=== PATIENT | male | born 1950 | race Caucasian/White ===

== ENCOUNTER → 2019-05-12 | Outpatient (CLI) | payer MEDICARE, OTHER, SELFPAY ==
[2019-05-12 11:24] LABS: Anion Gap 4 (5-15); BUN 17 mg/dL (7-18); Calcium,Total 8.8 mg/dL (8.5-10.1); Chloride 110 mmol/L (98-107); Creatinine, Serum 1.06 mg/dL (0.70-1.30); EST Glomerular Filtration Rate 74 mL/min (>60); Est Glom Filt Rate - Afr Amer 89 mL/min (>60); Glucose 88 mg/dL (74-106); PSA,Total - Annual Screen 0.39 ng/mL (0.00-4.00); Potassium 4.3 mmol/L (3.5-5.1); Sodium Level 141 mmol/L (136-145)
== END | disposition home or self-care (01) ==
LOC: MFPLAB 09:00
PROVIDERS: Family Provider Family Medicine; PCP Family Medicine; Referring Provider Family Medicine; Visit Provider Family Medicine
DX: Z00.00 Encounter for general adult medical examination without abnormal findings (principal); Z12.5 Encounter for screening for malignant neoplasm of prostate
CPT/HCPCS: 36415; 80048; 84153; G0103

== ENCOUNTER → 2020-06-09 09:20 | Outpatient (CLI) | payer MEDICARE, OTHER, SELFPAY ==
[2020-06-09 10:59] LABS: Anion Gap 5 (5-15); BUN 14 mg/dL (7-18); BUN/Creat Ratio 13.9 RATIO (10-20); Calcium,Total 8.5 mg/dL (8.5-10.1); Chloride 107 mmol/L (98-107); Cholesterol 162 mg/dL (200); Creatinine, Serum 1.01 mg/dL (0.70-1.30); EST Glomerular Filtration Rate 77 mL/min (>60); Est Glom Filt Rate - Afr Amer 94 mL/min (>60); Glucose 93 mg/dL (74-106); High Density Lipoprotein 56 mg/dL; PSA,Total - Annual Screen 0.48 ng/mL (0.00-4.00); Sodium Level 140 mmol/L (136-145); Triglycerides 48 mg/dL; Very Low Density Lipoprotein 10 mg/dL (5-40)
== END ==
PROVIDERS: PCP Family Medicine; Referring Provider Family Medicine; Visit Provider Family Medicine
DX: N40.0 Benign prostatic hyperplasia without lower urinary tract symptoms (principal); Z13.1 Encounter for screening for diabetes mellitus; Z13.220 Encounter for screening for lipoid disorders
CPT/HCPCS: 36415; 80048; 80061; 84153; G0103

== ENCOUNTER → 2022-05-30 | Outpatient (CLI) | payer MEDICARE, SELFPAY ==
--- NOTE | 2022-05-30 13:55 | RAD_ITS ---
STUDY: X-RAY - RIGHT FOOT CLINICAL: Pain at the distal second and third metatarsals after injury 3 months ago. TECHNIQUE: 3 view(s) of the foot. COMPARISON: None. 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 Otherwise, unremarkable talus, calcaneus, and tarsal bones. Normal visualized subtalar, talonavicular, calcaneocuboid, tarsal and tarsometatarsal articulations. Normal metatarsi. Normal metatarsophalangeal joint of the great toe. Normal tibial and fibular sesamoid bones. Normal interphalangeal joint of the great toe. Normal phalanges of the great toe. Normal second through fifth metatarsophalangeal joints. Normal interphalangeal joints and phalanges of the lesser toes. The soft tissue structures are unremarkable. RAD/Foot min 3 Views IMPRESSION: Nonosseous calcaneonavicular coalition. Otherwise, unremarkable x-ray examination of the right foot. Electronically Signed: Jere Lu MD at 14:16 EDT ,
== END | disposition home or self-care (01) ==
LOC: MTRAD 13:53
PROVIDERS: PCP Family Medicine; Referring Provider Family Medicine; Visit Provider Family Medicine
DX: M79.671 Pain in right foot (principal)
CPT/HCPCS: 73630

== ENCOUNTER 2022-09-26 08:31 | Outpatient (CLI) | payer MEDICARE, SELFPAY ==
[2022-09-26 09:44] LABS: Hematocrit 43.5 % (40-54); Hemoglobin 15.1 g/dL (13.0-16.5); Mean Corp Hgb Conc 34.7 g/dL (32-36); Mean Corpuscular Hgb 33.4 pg (27.0-32.0); Mean Corpuscular Volume 96.2 fL (80-94); Mean Platelet Vol. 10.7 fl (6.2-12.0); Platelet Count 177 K/mm3 (150-450); RBC Distribution Width CV 13.2 % (11.6-14.6); RBC Distribution Width SD 46.7 fl (35.1-43.9); Red Blood Count 4.52 M/mm3 (4.6-6.2); White Blood Count 4.5 K/mm3 (4.4-11.0)
[2022-09-26 10:24] LABS: Vitamin B12 444 pg/mL (211-911); Vitamin D,25 Hydroxy 42.6 ng/mL
[2022-09-26 10:44] LABS: Anion Gap 7 (5-15); BUN 14 mg/dL (7-18); BUN/Creat Ratio 13.5 RATIO (10-20); Chloride 108 mmol/L (98-107); Cholesterol 184 mg/dL (200); Creatinine, Serum 1.04 mg/dL (0.70-1.30); EST Glomerular Filtration Rate 74 mL/min (>60); Est Glom Filt Rate - Afr Amer 90 mL/min (>60); Glucose 100 mg/dL (74-106); High Density Lipoprotein 53 mg/dL; Iron 109 ug/dL (65-175); PSA,Total - Annual Screen 0.47 ng/mL (0.00-4.00); Potassium 3.9 mmol/L (3.5-5.1); Sodium Level 142 mmol/L (136-145); Thyroid Stim Hormone (TSH) 3.07 uIU/mL (0.358-3.74); Triglycerides 103 mg/dL; Very Low Density Lipoprotein 21 mg/dL (5-40)
== END 2022-09-26 23:59 | disposition home or self-care (01) ==
LOC: MFPLAB 08:32
PROVIDERS: PCP Family Medicine; Referring Provider Family Medicine; Visit Provider Family Medicine
DX: Z13.220 Encounter for screening for lipoid disorders (principal); Z13.1 Encounter for screening for diabetes mellitus; Z12.5 Encounter for screening for malignant neoplasm of prostate; G62.9 Polyneuropathy, unspecified; H81.09 Meniere's disease, unspecified ear; F41.9 Anxiety disorder, unspecified; N40.0 Benign prostatic hyperplasia without lower urinary tract symptoms; G47.33 Obstructive sleep apnea (adult) (pediatric); G57.61 Lesion of plantar nerve, right lower limb; M17.0 Bilateral primary osteoarthritis of knee
CPT/HCPCS: 36415; 80048; 80061; 82306; 82607; 83540; 84153; 84443; 85027; G0103

== ENCOUNTER → 2024-01-21 | Outpatient (CLI) | payer MEDICARE, SELFPAY ==
--- NOTE | 2024-01-21 17:20 | RAD_ITS ---
INDICATION: pain EXAMINATION/TECHNIQUE: X-RAY - RIGHT XR Knee Complete 4 Views or More 4 VIEWS COMPARISON: None FINDINGS: SOFT TISSUES: No soft tissue swelling or gas. No radiopaque foreign body. BONES/JOINTS: No acute fracture. Small joint effusion.. Medial compartment joint space narrowing with mild tricompartment osteophyte formation. Preservation of the joint space.. No sclerotic or destructive changes observed. RAD/Knee 4 or More Views IMPRESSION: Mild tricompartmental osteoarthritis with small nonspecific joint effusion.. Electronically Signed: Ranjit Warren MD at 17:30 EDT ,
== END | disposition home or self-care (01) ==
LOC: MTRAD 17:18
PROVIDERS: PCP Family Medicine; Referring Provider Family Medicine; Visit Provider Family Medicine
DX: M25.561 Pain in right knee (principal)
CPT/HCPCS: 73564

== ENCOUNTER → 2024-05-13 | Outpatient (CLI) | payer MEDICARE, SELFPAY ==
[2024-05-13 17:31] LABS: Hematocrit 44.1 % (40-54); Hemoglobin 15.2 g/dL (13.0-16.5); Mean Corp Hgb Conc 34.5 g/dL (32-36); Mean Corpuscular Hgb 33.1 pg (27.0-32.0); Mean Corpuscular Volume 96.1 fL (80-94); Mean Platelet Vol. 10.6 fl (6.2-12.0); Platelet Count 196 K/mm3 (150-450); RBC Distribution Width CV 12.9 % (11.6-14.6); RBC Distribution Width SD 45.7 fl (35.1-43.9); Red Blood Count 4.59 M/mm3 (4.6-6.2)
[2024-05-13 18:25] LABS: Vitamin B12 701 pg/mL (211-911); Vitamin D,25 Hydroxy 50.2 ng/mL
== END | disposition home or self-care (01) ==
LOC: MFPLAB 16:53
PROVIDERS: PCP Family Medicine; Visit Provider Nurse Practitioner Family
DX: G31.84 Mild cognitive impairment of uncertain or unknown etiology (principal)
CPT/HCPCS: 36415; 82306; 82607; 84443; 85027

== ENCOUNTER 2024-05-27 07:30 | Outpatient (RCR) | payer MEDICARE, SELFPAY ==
--- NOTE | 2024-03-31 09:02 | HP.PTEVAL ---
Patient's Visit Information Visit Information Visit Information: CHRISTINA DON is a 73 year old M referred to Physical Therapy by Dr. Bassam Jean MD with a diagnosis of R knee pain/OA. Date of Evaluation: 03/31/24 Physical Therapist: CHENG Durbin Visit Plan Frequency: 2x /Week Duration: 2 Months Plan: Thinking biking to help with inflammation and to avoid terminal knee ext on leg ext machine. 2X/ week for 6-8 weeks for R knee AROM to improve extension ROM, R hip and knee strength, some core strength with HEP. Pt is a [employer] member and would also like a gym routine which we can incorporate into his strengthening HEP: bridges, supine QS, LAQ Subjective Subjective: Pt reports that in November he twisted his R knee. Has x-ray and pills and he wanted him to do PT. Both of his knees hurt once in awhile but on the R he can not twist it and he walks with a little limp. They did not do an MRI. His pain has been there for 4 months and it gotten a little better but not much. His R knee does not lock or catch. His R knee will swell a little bit. He has to do one step at a time on the stairs. He has night pain when he lays down at night and the pain will wake him up. He sleeps with his knees bent and then has a hard time straightening them out. He has no N&T. He did get a steroid injection in the knee and it did help but for only a week or so. He does wear a brace from time to time with activity and that seems to help. Pain R knee pain: Pain Intensity (Out of 10): 0 Objective Objective: Gait: Walks with decrease stance time on the R LE, wider POLLY LE MMT: R hip flex 13.6 and L hip flex12.3 R knee ext 25.9 and L 29.5 R knee flex 16.8 and L 16.2 Pt is able to SLR but has tightness in the hamstrings B Knee AROM: R knee AROM -10 to 125 L knee AROM -4 to 125 Heel and toe raises: Pt is able to heel and toe raise Sit to stand: able to get up without using his arms Palpation: tender along the posterior joint line medially Girth measurements: Tib tub R 35.1 snf L 35.7, Infrapatella R 38 and L 37.5, Suprapatella R 41 and L 40.1 Balance/Special Test Scores Lower Extremity Functional Score: 36 Goals Goal 1:: I HEP Goal Time Frame: 6-8 Weeks Goal 2:: Increase R knee AROM to improve overall extension AROM (at the time of the eval R knee was -10 degrees from full extension) Goal Time Frame: 6-8 Weeks Goal 3:: Be able to go up and down the stairs recip with 1 hand rail with ease and without pain Rehabilitation Potential Rehabilitation Potential: Good Anticipated Interventions Patient/Client Instruction: Educate patient on: Condition and Plan of Care For the Purpose of:: To decrease pain, To decrease swelling/inflammation, To increase ROM, To improve nutrient delivery to tissue, To improve muscle performance and motor function, To improve ability to perform ADL's, To increase tolerance to activity/condition/position, To improve performance and independence with ADL's, To improve ability of physical actions for home/community/work/leisure, To improve gait and locomotor functions, To improve health of tissue, To decrease soft tissue restriction and To increase flexibility/ROM Therapeutic Exercise to Include: Strength training, Endurance training, Balance training, Postural training, Gait and locomotor training, Neuromotor development, Passive ROM and Active ROM For the Purpose of:: To decrease pain, To increase ROM, To improve nutrient delivery to tissue, To improve muscle performance and motor function, To improve ability to perform ADL's, To increase tolerance to activity/condition/position, To improve performance and independence with ADL's, To decrease level of supervision to perform tasks, To improve ability of physical actions for home/community/work/leisure, To improve gait and locomotor functions, To improve health of tissue, To decrease soft tissue restriction, To increase flexibility/ROM, To improve endurance, To improve balance and To improve safety with gait Functional Training to Include: Gait training For the Purpose of:: To improve gait and locomotor functions Manual Therapy Techniques to Include: Passive ROM For the Purpose of:: To increase ROM Text: Thank you for the opportunity to evaluate your patient. For Medicare and Medicare HMO plans, please review the plan of care and approve it. It will need to be FAXED BACK to us at [phone] for Medicare purposes. For Medicare only, by signing this I certify the plan of care. Please let me know if there are questions or concerns regarding this plan of care. Physician Signature: Date:
--- NOTE | 2024-05-27 08:19 | HP.PTDCSUM ---
Discharge Summary D/C summary: It has been my pleasure to treat CHRISTINA DON referred by Dr. Bassam Jean MD, with the diagnosis of R knee pain/OA for a total of 9 visit(s). Discharge Date: 05/27/24 Please see the following information for a summary of their discharge status. Subjective Subjective: Pt feels fine but he still has some burning in his knee during the night. It will wake him up once in a while at night. He can not walk very fast but he can walk without limping. He just has to take his time. Pain R knee pain: Pain Intensity (Out of 10): 3 Overall Improvement % Improvement: 30 Objective Objective/Function: R knee was -8 degrees from full extension to 120 knee flexion Stairs: up and down recip with 1 hand rail. Goals Goal 1:: I HEP Goal Progress: Goal Met Goal 2:: Increase R knee AROM to improve overall extension AROM (at the time of the eval R knee was -10 degrees from full extension) Goal 3:: Be able to go up and down the stairs recip with 1 hand rail with ease and without pain Plan Plan: DC PT to HEP D/C Information Discharge Comments: DC PT to gym exercises d/c sentence: If there are questions or concerns regarding this patient's physical therapy, please feel free to call me at [phone]. Thank you for the referral of this patient. Sincerely, Luz Lara, MPT Balance/Gait/Functional tests Balance/Special Test Scores Lower Extremity Functional Score: 43 Improvement % Improvement: 30
== END 2024-05-27 19:00 | disposition home or self-care (01) ==
LOC: PT 07:30
PROVIDERS: PCP Family Medicine; Referring Provider Family Medicine; Visit Provider Family Medicine
DX: M17.11 Unilateral primary osteoarthritis, right knee (principal); M25.562 Pain in left knee
CPT/HCPCS: 97110; 97161; 97530

== ENCOUNTER → 2024-06-11 | Outpatient (CLI) | payer MEDICARE, SELFPAY ==
[2024-06-11 10:28] LABS: Anion Gap 5 (5-15); BUN 16 mg/dL (7-18); BUN/Creat Ratio 17.2 RATIO (10-20); Chloride 108 mmol/L (98-107); Cholesterol 183 mg/dL (200); Creatinine, Serum 0.93 mg/dL (0.70-1.30); EST Glomerular Filtration Rate 84 mL/min (>60); Est Glom Filt Rate - Afr Amer 102 mL/min (>60); Glucose 97 mg/dL (74-106); High Density Lipoprotein 52 mg/dL; PSA,Total - Annual Screen 0.49 ng/mL (0.00-4.00); Potassium 4.2 mmol/L (3.5-5.1); Sodium Level 140 mmol/L (136-145); Triglycerides 82 mg/dL; Very Low Density Lipoprotein 16 mg/dL (5-40)
== END | disposition home or self-care (01) ==
LOC: MFPLAB 09:16
PROVIDERS: PCP Family Medicine; Visit Provider Family Medicine
DX: Z13.220 Encounter for screening for lipoid disorders (principal); Z13.1 Encounter for screening for diabetes mellitus; N40.0 Benign prostatic hyperplasia without lower urinary tract symptoms; Z12.5 Encounter for screening for malignant neoplasm of prostate
CPT/HCPCS: 36415; 80048; 80061; 84153; G0103

== ENCOUNTER → 2025-05-04 | Outpatient (CLI) | payer MEDICARE, SELFPAY ==
[2025-05-04 18:28] LABS: Anion Gap 12 (5-15); BUN 17 mg/dL (4-19); BUN/Creat Ratio 17.5 RATIO (10-20); CPK Total, Creatine Kinase 50 U/L (24-195); Calcium,Total 9.3 mg/dL (7.6-11.0); Carbon Dioxide 24.5 mmol/L (21.0-32.0); Chloride 104 mmol/L (98-108); Glucose 103 mg/dL (70-99); Potassium 4.3 mmol/L (3.3-5.1)
--- OUTSIDE RECORDS SUMMARY | 2025-05-04 21:19 | XMS RPT_ITS | CCD ---
Author Organization [facility] Care Team Providers Care Teaching Specialists Name Role Phone Miranda DICKINSON, Dr. Banegas Primary Care Provider Dr. Bassam Jean MD Referring Provider [phone] Tomas Noble Attending Provider [phone] Bassam Jean Attending Unavailable Bassam Jean Primary Care Unavailable Bassam Jean Primary Care Unavailable Naga CANE PACKER, Elizabeth Attending Unavailable Bassam Jean Attending Unavailable Bassam Jean Primary Care Unavailable Bassam Jean Referring Unavailable Tomas Noble Attending Unavailable Bassam Jean Primary Care Unavailable Bassam Jean Referring Unavailable Medications Current Medications Medication Drug Class(es) Dates Sig (Normalized) Sig (Original) escitalopram 10 mg oral tablet (1 source) Serotonin Reuptake Inhibitor Start: 04-10-2025 take 1 tablet by mouth once daily Escitalopram Oxalate 10 mg tablet Active 10 mg PO daily April 10, 2025 12:00am lisinopril 10 mg oral tablet (1 source) Angiotensin Converting Enzyme Inhibitor Start: 04-10-2025 take 1 tablet by mouth once daily Lisinopril 10 mg tablet Active 10 mg PO daily April 10, 2025 12:00am sulfamethoxazole 800 mg / trimethoprim 160 mg oral tablet (1 source) Dihydrofolate Reductase Inhibitor Antibacterial, Sulfonamide Antimicrobial Start: 04-10-2025 Sulfamethoxazole- Trimethoprim (Bactrim Ds) 800-160 mg tablet Active 1 {tbl} PO Q12H 20 10 0 April 10, 2025 12:00am April 19, 2025 12:00am Problems Active Problems Problem Classification Problem Date Documented Da te Episodic/Chronic Anxiety disorders (1 source) Anxiety; Translations: [Anxiety disorder, unspecified] 04-10-2025 Chronic Essential hypertension (1 source) Hypertensive disorder; Translations: [Essential (primary) hypertension] 04-10-2025 Chronic Osteoarthritis (1 source) Osteoarthritis; Translations: [Unspecified osteoarthritis, unspecified site] 04-10-2025 Chronic Other hereditary and degenerative nervous system conditions (1 source) Mild cognitive impairment, so stated; Translations: [Mild cognitive impairment of uncertain or unknown etiology] Onset: 05-30-2024 Chronic Spondylosis; intervertebral disc disorders; other back problems (1 source) Backache; Translations: [Dorsalgia, unspecified] 04-10-2025 Episodic Past or Other Problems Problem Classification Problem Date Documented Da te Episodic/Chronic Other non-traumatic joint disorders (1 source) Pain in right knee; Translations: [Pain in right knee] Onset: 05-28-2024 Episodic Other screening for suspected conditions (not mental disorders or infectious disease) (1 source) Encounter for screening for lipoid disorders; Translations: [Encounter for screening for lipoid disorders] Onset: 07-03-2024 Episodic Results Test Name Value Interpretation Reference Range Facil ity Urgent Care Visit Reporton 0 04-10-2025 Urgent Care Visit Report [facility] [address], [address] [place] [address] OFFICE VISIT Date of Service: 04/10/25 MR#: [id number] Acct: [id number] Name: CHRISTINA DON Rep #: [id number] : 1950 Provider: ROVERTO Calderon Age/Sex: 74/M Location: [facility] [place] Status: Signed Intake Vital Signs 04/10/25 12:57 Height 5 ft 9 in Weight: 200 lb BMI 29.5 BP 128/50 H Blood Pressure Location Lt brachial Position Sitting Respiration 16 Pulse 72 Pulse Source NIBP Temp 98.3 F Temp Source Oral Pulse Oximetry (%) 97 Oxygen Delivery Method room air Intake Visit Reasons: L LOWER SIDE LEG INJURY Chief Complaint: left lower leg wound 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 scraped while doing yard work at that time. denies drainage, fever. concerned for infection. has not tried anything OTC, states it closed up very quickly. [facility] Medical History (Updated 04/10/25 @ 15:59 by Tomas LAYNE, PA) Osteoarthritis Back pain Anxiety HTN (hypertension) Surgical History (Updated 04/10/25 @ 13:00 by Savana Srinivasan) No significant past surgical history Social History (Updated 04/10/25 @ 13:00 by Savana Srinivasan) Smoking Status: Never smoker alcohol intake: never substance use type: does not use HPI HPI Chief Complaint: left lower leg wound Details: CHRISTINA DON, is a 74 M who presents to the office today for initial evaluation of a left lower leg wound. Patient states he scraped it while doing yard work 2 weeks ago and has had a wound to the same area since then. He does state that he has noticed increased swelling to the area recently. He denies numbness, tingling or loss of range of motion. No fever, chills or sweats. No nausea, vomiting or diarrhea. No other associated symptoms or alleviating/aggravat ing factors. ROS Const Constitutional: No other (6 system ROS completed with pertinent findings in the HPI otherwise normal.) Exam Const General: cooperative and healthy appearing Skin Other: Small lesion left lower leg measuring approximately 1.5 cm in diameter with minimal induration without fluctuance, warmth or drainage. Mild amount of soft tissue swelling to the area without streaking or lymphadenopathy. Neuro General: patient alert Psych Appearance: grossly normal Mental Status: mental status grossly normal Coding Level of Care Code Off vis,new,level 3 Diagnoses Cellulitis of left lower extremity L03.116 Assessment and Plan Assessment and Plan (1) Cellulitis of left lower extremity: Status: Acute Medications: New sulfamethoxazole-tri methoprim 800-160 mg (Bactrim DS) 1 TAB PO Q12H 20 tabs 0RF 10 days Plan Bactrim as prescribed today. Encouraged to get plenty of rest, drink lots of clear liquids, and use Tylenol or Ibuprofen (unless contraindicated) for fever and comfort. Patient also educated on other symptomatic management techniques. To be seen in 7-10 days if no improvement; sooner if worsening of symptoms. Patient advised of potential red flags and when appropriate to report to the ED. Patient verbalized understanding and agreement with all the above. Clinical Quality Measures Falls Risk Screening/Assistive Devices Have you fallen in the past year?: No 04/10/25 1600 Date Tomas Pham Signature: Date (if applicable) CC: Normal [facility] Basic Metabolic Profile (BMP )on 06-11-2024 BUN/CRE 17.2 RATIO Normal 10-20 [facility] Comment on above: Order Comment: Order Date: 01/17/24 Order Info: [id number] - BMP Order Info: [id number] - LIPID Order Info: [id number] - PSA Performed By: #### L 501.9910, L500.4100, L500.2500 #### [facility] [address] [place], [address] CA,Total 9.0 mg/dL Normal 8.5-10.1 [facility] Comment on above: Order Comment: Order Date: 01/17/24 Order Info: [id number] - BMP Order Info: [id number] - LIPID Order Info: [id number] - PSA Performed By: #### L 501.9910, L500.4100, L500.2500 #### [facility] [address] [place], [address] Chloride [Moles/Vol] 108 mmol/L High 98-107 [facility] Comment on above: Order Comment: Order Date: 01/17/24 Order Info: 666-09 - BMP Order Info: [id number] - LIPID Order Info: [id number] - PSA Performed By: #### L 501.9910, L500.4100, L500.2500 #### [facility] [address] [place], [address] CO2 [Moles/Vol] 27.0 mmol/L Normal 21.0-32.0 [facility] Comment on above: Order Comment: Order Date: 01/17/24 Order Info: 666-09 - BMP Order Info: [id number] - LIPID Order Info: [id number] - PSA Performed By: #### L 501.9910, L500.4100, L500.2500 #### [facility] [address] [place], [address] Creatinine [Mass/Vol] 0.93 mg/dL Normal 0.70-1.30 [facility] Comment on above: Order Comment: Order Date: 01/17/24 Order Info: 666-09 - BMP Order Info: [id number] - LIPID Order Info: [id number] - PSA Result Comment: The validity of the calculated GFR GFRAA in patients over 70 years has not been determined. Clinical correlation is essential. Performed By: #### L 501.9910, L500.4100, L500.2500 #### [facility] [address] [place], [address] EST GFR - AA 102 mL/min Normal >60 [facility] Comment on above: Order Comment: Order Date: 01/17/24 Order Info: 666-09 - BMP Order Info: [id number] - LIPID Order Info: [id number] - PSA Result Comment: Afri can Somali GFR Calc Performed By: #### L 501.9910, L500.4100, L500.2500 #### [facility] [address] [place], [address] GAP 5 Normal 5-15 [facility] Comment on above: Order Comment: Order Date: 01/17/24 Order Info: 666-09 - BMP Order Info: - LIPID Order Info: [id number] - PSA Performed By: #### L 501.9910, L500.4100, L500.2500 #### [facility] [address] [place], [address] GFR/1.73 sq M.predicted among non-blacks MDRD (S/P/Bld) [Vol rate/Area] 84 mL/min/{1.73_m2} Normal >60 [facility] Comment on above: Order Comment: Order Date: 01/17/24 Order Info: 666-09 - BMP Order Info: - LIPID Order Info: [id number] - PSA Result Comment: Non- GFR Calc Performed By: #### L 501.9910, L500.4100, L500.2500 #### [facility] [address] [place], [address] Glucose [Mass/Vol] 97 mg/dL Normal 74-106 [facility] Comment on above: Order Comment: Order Date: 01/17/24 Order Info: 666-09 - BMP Order Info: - LIPID Order Info: [id number] - PSA Performed By: #### L 501.9910, L500.4100, L500.2500 #### [facility] [address] [place], [address] Potassium [Moles/Vol] 4.2 mmol/L Normal 3.5-5.1 [facility] Comment on above: Order Comment: Order Date: 01/17/24 Order Info: 666-09 - BMP Order Info: [id number] - LIPID Order Info: [id number] - PSA Performed By: #### L 501.9910, L500.4100, L500.2500 #### [facility] [address] [place], [address] Sodium [Moles/Vol] 140 mmol/L Normal 136-145 [facility] Comment on above: Order Comment: Order Date: 01/17/24 Order Info: 06 - BMP Order Info: [id number] - LIPID Order Info: [id number] - PSA Performed By: #### L 501.9910, L500.4100, L500.2500 #### [facility] [address] [place], [address] Urea nitrogen [Mass/Vol] 16 mg/dL Normal 7-18 [facility] Comment on above: Order Comment: Order Date: 01/17/24 Order Info: 666-09 - BMP Order Info: [id number] - LIPID Order Info: [id number] - PSA Performed By: #### L 501.9910, L500.4100, L500.2500 #### [facility] [address] [place], [address] Lipid Profileon 06-11-2024 Cholesterol [Mass/Vol] 183 mg/dL Normal 200 [facility] Comment on above: Order Comment: Order Date: 01/17/24 Order Info: 666-09 - BMP Order Info: [id number] - LIPID Order Info: [id number] - PSA Result Comment: <200 mg/dL Desirable 200-240 mg/dL Borderline >240 mg/dL High Risk Performed By: #### L 501.9910, L500.4100, L500.2500 #### [facility] [address] [place], [address] Cholesterol in HDL [Mass/Vol] 52 mg/dL Normal [facility] Comment on above: Order Comment: Order Date: 01/17/24 Order Info: 06 - BMP Order Info: [id number] - LIPID Order Info: [id number] - PSA Result Comment: The drugs N-Acetylcysteine and Metamizole may falsely depress this assay. Reference Range HDL <40 mg/dL Low HDL Cholesterol HDL >or= 60 mg/dL High HDL Cholesterol Performed By: #### L 501.9910, L500.4100, L500.2500 #### [facility] [address] [place], [address] Cholesterol in LDL [Mass/Vol] 115 mg/dL Normal 0-130 [facility] Comment on above: Order Comment: Order Date: 01/17/24 Order Info: 666-09 - BMP Order Info: - LIPID Order Info: [id number] - PSA Performed By: #### L 501.9910, L500.4100, L500.2500 #### [facility] [address] [place], [address] Cholesterol in VLDL [Mass/Vol] 16 mg/dL Normal 5-40 [facility] Comment on above: Order Comment: Order Date: 01/17/24 Order Info: 666-09 - BMP Order Info: - LIPID Order Info: [id number] - PSA Performed By: #### L 501.9910, L500.4100, L500.2500 #### [facility] [address] [place], [address] Triglyceride [Mass/Vol] 82 mg/dL Normal [facility] Comment on above: Order Comment: Order Date: 01/17/24 Order Info: 666-09 - BMP Order Info: - LIPID Order Info: [id number] - PSA Result Comment: The drugs N-Acetylcysteine and Metamizole may falsely depress this assay. Serum Triglycerides Reference Interval Normal <150 mg/dL Borderline high 150 - 199 mg/dL High 200 - 499 mg/dL Very High > or = 500 mg/dL Performed By: #### L 501.9910, L500.4100, L500.2500 #### [facility] [address] [place], [address] PSA,Total - Annual Screenon 06-11-2024 PSA,TOT SCREEN 0.49 ng/mL Normal 0.00-4.00 [facility] Comment on above: Order Comment: Order Date: 01/17/24 Order Info: 666-09 - BMP Order Info: - LIPID Order Info: [id number] - PSA Result Comment: This test was performed using the TPSA assay method for the [employer] chemistry system. Values obtained with different assay methods cannot be used interchangably. When changing PSA assays in the course of monitoring a patient, additional sequential testing should be carried out to confirm baseline values. Performed By: #### L 501.9910, L500.4100, L500.2500 #### [facility] [address] [place], [address] PT D/C Summary (1)on 024 PT D/C Summary (1) [facility] [address] [place] [address] / REHABILITATION SERVICES DISCHARGE SUMMARY MR#: [id number] Acct: [id number] Name: CHRISTINA DON Rep #: [id number] : 1950 73 From: Luz Lara MPT Referring Dr.: Dr. Bassam Jean MD Status: REG R Insurance: [employer]URANCE Discharge Summary D/C summary: It has been my pleasure to treat CHRISTINA DON referred by Dr. Bassam Jean MD, with the diagnosis of R knee pain/OA for a total of 9 visit(s). Discharge Date: 05/27/24 Please see the following information for a summary of their discharge status. Subjective Subjective: Pt feels fine but he still has some burning in his knee during the night. It will wake him up once in a while at night. He can not walk very fast but he can walk without limping. He just has to take his time. Pain R knee pain: Pain Intensity (Out of 10): 3 Overall Improvement % Improvement: 30 Objective Objective/Function: R knee was -8 degrees from full extension to 120 knee flexion Stairs: up and down recip with 1 hand rail. Goals Goal 1:: I HEP Goal Progress: Goal Met Goal 2:: Increase R knee AROM to improve overall extension AROM (at the time of the eval R knee was -10 degrees from full extension) Goal 3:: Be able to go up and down the stairs recip with 1 hand rail with ease and without pain Plan Plan: DC PT to HEP D/C Information Discharge Comments: DC PT to gym exercises d/c sentence: If there are questions or concerns regarding this patient's physical therapy, please feel free to call me at [phone]. Thank you for the referral of this patient. Sincerely, Luz Lara, CHENG Balance/Gait/Functio nal tests Balance/Special Test Scores Lower Extremity Functional Score: 43 Improvement % Improvement: 30 05/27/24 0819 CC: Dr. Bassam Jean MD Signed Normal [facility] CBC-Complete Blood Cnt No Di ffon 05-13-2024 Erythrocyte distribution width (RBC) [Ratio] 12.9 % Normal 11.6-14.6 [facility] Comment on above: Order Comment: Order Date: 05/13/24 Order Info: [id number] - CBC Performed By: #### L 503.0105, L501.9520, L100.0500, L506.1000 #### [facility] [address] [place], [address] Hematocrit (Bld) [Volume fraction] 44.1 % Normal 40-54 [facility] Comment on above: Order Comment: Order Date: 05/13/24 Order Info: [id number] - CBC Performed By: #### L 503.0105, L501.9520, L100.0500, L506.1000 #### [facility] [address] [place], [address] Hemoglobin (Bld) [Mass/Vol] 15.2 g/dL Normal 13.0-16.5 [facility] Comment on above: Order Comment: Order Date: 05/13/24 Order Info: [id number] - CBC Performed By: #### L 503.0105, L501.9520, L100.0500, L506.1000 #### [facility] [address] [place], [address] MCH (RBC) [Entitic mass] 33.1 pg High 27.0-32.0 [facility] Comment on above: Order Comment: Order Date: 05/13/24 Order Info: [id number] - CBC Performed By: #### L 503.0105, L501.9520, L100.0500, L506.1000 #### [facility] [address] [place], [address] MCHC (RBC) [Mass/Vol] 34.5 g/dL Normal 32-36 [facility] Comment on above: Order Comment: Order Date: 05/13/24 Order Info: [id number] - CBC Performed By: #### L 503.0105, L501.9520, L100.0500, L506.1000 #### [facility] [address] [place], [address] MCV (RBC) [Entitic vol] 96.1 fL High 80-94 [facility] Comment on above: Order Comment: Order Date: 05/13/24 Order Info: [id number] - CBC Performed By: #### L 503.0105, L501.9520, L100.0500, L506.1000 #### [facility] [address] [place], [address] Platelet mean volume (Bld) [Entitic vol] 10.6 fL Normal 6.2-12.0 [facility] Comment on above: Order Comment: Order Date: 05/13/24 Order Info: [id number] - CBC Performed By: #### L 503.0105, L501.9520, L100.0500, L506.1000 #### [facility] [address] [place], [address] Platelets (Bld) [#/Vol] 196 10*3/uL Normal 150-450 [facility] Comment on above: Order Comment: Order Date: 05/13/24 Order Info: [id number] - CBC Performed By: #### L 503.0105, L501.9520, L100.0500, L506.1000 #### [facility] [address] [place], [address] RBC (Bld) [#/Vol] 4.59 10*6/uL Low 4.6-6.2 [facility] Comment on above: Order Comment: Order Date: 05/13/24 Order Info: [id number] - CBC Performed By: #### L 503.0105, L501.9520, L100.0500, L506.1000 #### [facility] [address] [place], [address] RDW SD 45.7 fl High 35.1-43.9 [facility] Comment on above: Order Comment: Order Date: 05/13/24 Order Info: [id number] - CBC Performed By: #### L 503.0105, L501.9520, L100.0500, L506.1000 #### [facility] [address] [place], [address] WBC (Bld) [#/Vol] 6.0 10*3/uL Normal 4.4-11.0 [facility] Comment on above: Order Comment: Order Date: 05/13/24 Order Info: [id number] - CBC Performed By: #### L 503.0105, L501.9520, L100.0500, L506.1000 #### [facility] [address] [place], [address] Thyroid Stim Hormone (TSH)on 05-13-2024 TSH 3.100 uIU/mL Normal 0.358-3.740 [facility] Comment on above: Order Comment: Order Date: 05/13/24 Order Info: [id number] - TSH Performed By: #### L 503.0105, L501.9520, L100.0500, L506.1000 #### [facility] [address] [place], [address] Vitamin B12on 05-13-2024 Cobalamin (Vitamin B12) [Mass/Vol] 701 pg/mL Normal 211-911 [facility] Comment on above: Order Comment: Order Date: 05/13/24 Order Info: [id number] - B12 Order Info: [id number] - VITD25 Performed By: #### L 503.0105, L501.9520, L100.0500, L506.1000 #### [facility] [address] [place], [place], [address] Vitamin D,25 Hydroxyon 05-13 Vitamin D 25-OH 50.2 ng/mL Normal [facility] Comment on above: Order Comment: Order Date: 05/13/24 Order Info: [id number] - B12 Order Info: [id number] - VITD25 Result Comment: Melissa min D 25(OH) Status Range Deficiency <20 ng/mL (50nmol/L) Insufficiency 20 - 30 ng/mL (50 - 75 nmol/L) Sufficiency 30 - 100 ng/mL (75 - 250 nmol/L) Toxicity >100 ng/mL (>250 nmol/L) Performed By: #### L 503.0105, L501.9520, L100.0500, L506.1000 #### [facility] [address] [place], [place], [address] Basophil percentageon 2022 Chloride [Moles/Vol] 108 mmol/L 98-107 [facility] Work Phone: Cholesterol [Mass/Vol] 184 mg/dL <200 [facility] Work Phone: Comment on above: <200 mg/dL Desirable 200-240 mg/dL Borderline >240 mg/dL High Risk Glucose [Mass/Vol] 100 mg/dL 74-106 [facility] Work Phone: Comment on above: Fasting Glucose resu lt from 100 to 125 mg/dL suggests IMPAIRED HOMEOSTASIS per A.D.A. criteria. Potassium [Moles/Vol] 3.9 mmol/L 3.5-5.1 [facility] Work Phone: Sodium [Moles/Vol] 142 mmol/L 136-145 [facility] Work Phone: Triglyceride [Mass/Vol] 103 mg/dL <199 [facility] Work Phone: Comment on above: The drugs N-Acetylcy steine and Metamizole may falsely depress this assay.Serum Triglycerides Reference Interval Normal <150 mg/dL Borderline high 150 - 199 mg/dL High 200 - 499 mg/dL Very High > or = 500 mg/dL WBC (Bld) [#/Vol] 4.5 10*3/uL 4.4-11.0 [facility] Work Phone: Blood erythrocytes count (nu mber/volume)on 09-26-2022 RBC (Bld) [#/Vol] 4.52 10*6/uL 4.6-6.2 [facility] Work Phone: Blood hemoglobin measurement (mass/volume)on 09-26-2022 Hemoglobin (Bld) [Mass/Vol] 15.1 g/dL 13.0-16.5 [facility] Work Phone: Blood platelet mean volumeon 09-26-2022 Platelet mean volume (Bld) [Entitic vol] 10.7 fL 6.2-12.0 [facility] Work Phone: Determination of erythrocyte mean corpuscular volume (MCV)on 09-26-2022 MCV (RBC) [Entitic vol] 96.2 fL 80-94 [facility] Work Phone: Hematocrit Auto (Bld) [Volum e fraction]on 09-26-2022 Hematocrit (Bld) [Volume fraction] 43.5 % 40-54 [facility] Work Phone: Iron measurement (mass/mass) on 09-26-2022 Iron (Unsp spec) [Mass/Mass] 109 ug/dL 65-175 [facility] Work Phone: Laboratory - Chemistry and C hemistry - challengeon 09-26-2022 CO2 [Moles/Vol] 27.0 mmol/L 21.0-32.0 [facility] Work Phone: Cobalamin (Vitamin B12) [Mass/Vol] 444 pg/mL 211-911 [facility] Work Phone: Urea nitrogen/Creatinine [Mass ratio] 13.5 mg/mg 10-20 [facility] Work Phone: Laboratory - Hematology and Cell countson 09-26-2022 Erythrocyte distribution width (RBC) [Entitic vol] 46.7 fL 35.1-43.9 [facility] Work Phone: Erythrocyte distribution width (RBC) [Ratio] 13.2 % 11.6-14.6 [facility] Work Phone: MCH (RBC) [Entitic mass] 33.4 pg 27.0-32.0 [facility] Work Phone: MCHC Auto (RBC) [Mass/Vol]on 09-26-2022 MCHC (RBC) [Mass/Vol] 34.7 g/dL 32-36 [facility] Work Phone: No Panel Informationon 09-26 Estimated GFR (MDRD) Amer 90 mL/min >60 [facility] Work Phone: Comment on above: GFR Calc Estimated GFR (MDRD) Non-Af Amer 74 mL/min >60 [facility] Work Phone: Comment on above: Non- GFR Calc Prostate Specific Antigen Screen 0.47 ng/mL 0.00-4.00 [facility] Work Phone: Comment on above: This test was perfor med using the TPSA assay method for the[facility] system. Values obtained with differentassay methods cannot be used interchangably.When changing PSA assays in the course of monitoring apatient, additional sequential testing should be carriedout to confirm baseline values. Thyroid Stimulating Hormone (TSH) 3.07 uIU/mL 0.358-3.74 [facility] Work Phone: Vitamin D 25-Hydroxy 42.6 ng/mL [facility] Work Phone: Comment on above: Vitamin D 25(OH) Sta tus Range Deficiency <20 ng/mL (50nmol/L) Insufficiency 20 - 30 ng/mL (50 - 75 nmol/L) Sufficiency 30 - 100 ng/mL (75 - 250 nmol/L) Toxicity >100 ng/mL (>250 nmol/L) Platelets bldon 09-26-2022 Platelets (Bld) [#/Vol] 177 10*3/uL 150-450 [facility] Work Phone: Serum or plasma calcium yolis urement (mass/volume)on 09-26-2022 Calcium [Mass/Vol] 9.0 mg/dL 8.5-10.1 [facility] Work Phone: Serum or plasma cholesterol in HDL measurement (mass/volume)on 09-26-2022 Cholesterol in HDL [Mass/Vol] 53 mg/dL >40 [facility] Work Phone: Comment on above: The drugs N-Acetylcy steine and Metamizole may falsely depress this assay. Reference Range HDL <40 mg/dL Low HDL Cholesterol HDL >or= 60 mg/dL High HDL Cholesterol Serum or plasma cholesterol in VLDL measurement (mass/volume)on 09-26-2022 Cholesterol in VLDL [Mass/Vol] 21 mg/dL 5-40 [facility] Work Phone: Serum or plasma creatinine m easurement (mass/volume)on 09-26-2022 Creatinine [Mass/Vol] 1.04 mg/dL 0.70-1.30 [facility] Work Phone: Comment on above: The validity of the calculated GFR & GFRAA in patients over 70 years has not been determined. Clinical correlation is essential. Serum or plasma low density lipoprotein (LDL) cholesterol measurement (mass/volume)on 09-26-2022 Cholesterol in LDL [Mass/Vol] 110 mg/dL 0-130 [facility] Work Phone: Serum or plasma urea nitroge n measurement (mass/volume)on 09-26-2022 Urea nitrogen [Mass/Vol] 14 mg/dL 7-18 [facility] Work Phone: Thin prep Papanicolaou smear with manual screeningon 09-26-2022 Thin prep Papanicolaou smear with manual screening 7 5-15 [facility] Work Phone: Vital Signs Date Time Vital Sign Value Performing Clinician Faci lity 04-10-2025 12:57-0400 Body height 175.[address] Bassam Jean MD Work Phone: [facility] 04-10-2025 12:57-0400 Body mass index (BMI) [Ratio] 29.5 kg/m2 Dr. Bassam Jean MD Work Phone: [facility] 04-10-2025 12:57-0400 Body temperature 98.3 [degF] Dr. Bassam Jean MD Work Phone: [facility] 04-10-2025 12:57-0400 Body weight 90.[address] Bassam Jean MD Work Phone: [facility] 04-10-2025 12:57-0400 Diastolic blood pressure 50 mm[Hg] Dr. Bassam Jean MD Work Phone: [facility] 04-10-2025 12:57-0400 Heart rate 72 /min Dr. Bassam Jean MD Work Phone: [facility] 04-10-2025 12:57-0400 Respiratory rate 16 /min Dr. Bassam Jean MD Work Phone: [facility] 04-10-2025 12:57-0400 SaO2% (BldA) [Mass fraction] 97 % Dr. Bassam Jean MD Work Phone: [facility] 04-10-2025 12:57-0400 Systolic blood pressure 128 mm[Hg] Dr. aBssam Jean MD Work Phone: [facility] Encounters Encounter Date Encounter Type Care Provider Facility Start: 04-10-2025 End: 04-10-2025 Patient encounter procedure Tomas LAYNE [facility] Work Phone: Start: 04-10-2025 End: 04-10-[address] Bassam Jean MD Work Phone: [facility] Start: 06-11-2024 End: 06-11-2024 ambulatory Bassam Jean Facility:[facility] Start: 05-27-2024 End: 05-27-2024 ambulatory [facility] Facility:[facility] Start: 05-13-2024 End: 05-13-2024 ambulatory [facility] Facility:[facility] Start: 01-21-2024 End: 01-21-2024 ambulatory [facility] Work Phone: Start: 01-21-2024 End: 01-21-2024 [facility] Start: 09-26-2022 End: 09-26-2022 ambulatory [facility] Work Phone: Start: 09-26-2022 End: 09-26-2022 Patient encounter procedure [facility] Start: 05-30-2022 End: 05-30-2022 ambulatory [facility] Work Phone: Start: 05-30-2022 End: 05-30-2022 Patient encounter procedure [facility] [place] Procedures Date Procedure Procedure Detail Performing Clinician Start: 01-21-2024 Radiologic examinati on of knee Start: 05-30-2022 X-ray of both feet Payers Date Payer Category Payer Self-pay [id number] 2023 Medicare [id number] Medicare [id number] Private Health Insurance [facility] [id number] Unknown [id number] Unknown [id number] Unknown [id number] [id number] [id number] Unknown [id number] [id number] Unknown [id number] [id number] [id number] Social History Date Type Detail Facility Start: 11-16-2015 End: 11-16-2015 Tobacco smoking status NHIS Unknown if ever smoked [facility] Start: 1950 Sex Assigned At Male [facility] Start: 04-10-2025 Tobacco smoking stat us NHIS Never smoked tobacco (finding) [facility] Evaluation note Note Date & Type Note Facility Evaluation note No assessment information availa ble [facility] Work Phone: Reason for referral (narrative) Note Date & Type Note Facility Reason for referral (narrative) No reason for referral information available [facility] Work Phone: Chief Complaint and Reason for Visit Chief Complaint FOOT PAIN Chief Complaint Admit Date L LOWER SIDE LEG INJURY April 10, 2025 12:53pm Summary Purpose Family History No Family History Records Found Advance Directives No Advanced Directives Records Found Additional Source Comments Goals (unrecognized section and content) Goals may be documented in a n alternate sectionGoals may be documented in an alternate sectionGoals may be documented in an alternate sectionGoals may be documented in an alternate section Care Teams (unrecognized sec tion and content) Team Status: Active Member Role Status Dates Dr. Bassam Jean MD Family Provider Active Dr. Bassam Jean MD Primary Care Provider Acti ve Team Status: Inactive Member Role Status Dates Dr. Bassam Jean MD Primary Care Provider, Attending Provider, Referring Provider Active Team Status: Active Member Role/Relationship Status Dates Dr. Bassam Jean MD Family Provider Active Dr. Bassam Jean MD Primary Care Provider Acti ve Team Status: Inactive Member Role/Relationship Status Dates Dr. Bassam Jean MD Primary Care Provider Acti ve Start: April 10, 2025 End: April 10, 2025 Dr. Bassam Jean MD Referring Provider Active Start: April 10, 2025 End: April 10, 2025 Tomas LAYNE, PA Attending Provider Active Sta rt: April 10, 2025 End: April 10, 2025 (unrecognized sect ion and content) No Status Records Found INFORMATION SOURCE (unrecogn ized section and content) DATE CREATED AUTHOR 04/13/2025 [facility] FOR RECORDS PERTAINING TO PATIENTS WHO ARE OR HAVE BEEN ENROLLED IN A CHEMICAL DEPENDENCY/SUBSTANCEABUSE PROGRAM, SOME INFORMATION MAY BE OMITTED. This clinical summary was aggregated from multiple sources. Caution should be exercised in using it in the provision of clinical care. This summary normalizes information from multiple sources, and as a consequence, information in this document may materially change the coding, format and clinical context of patient data. In addition, data may be omitted in some cases. CLINICAL DECISIONS SHOULD BE BASED ON THE PRIMARY CLINICAL RECORDS. [employer] provides no warranty or guarantee of the accuracy or completeness of information in this document.
--- OUTSIDE RECORDS SUMMARY | 2025-05-04 21:19 | XMS RPT_ITS | CCD ---
Author Organization [facility] Care Team Providers Care Medical Office Representative Name Role Phone Miranda DICKINSON, Dr. Banegas Primary Care Provider Dr. Bassam Jean MD Referring Provider Tomas Nolbe Attending Provider Bassam Jean Attending Unavailable Bassam Jean Primary Care Unavailable Bassam Jean Primary Care Unavailable Naga RAW SCALES OPERATOR, Elizabeth Attending Unavailable Bassam Jean Attending Unavailable [...] Reporton 0 04-10-2025 Urgent Care Visit Report [facility] [address], [address] [place] [address] OFFICE VISIT Date of Service: 04/10/25 MR#: [id number] Acct: [id number] Name: CHRISTINA DON Rep #: [id number] : 1950 Provider: ROVERTO Calderon Age/Sex: 74/M Location: [facility] Status: Signed Intake Vital Signs 04/10/25 12:57 Height 5 ft 9 in Weight: 200 lb BMI 29.5 BP 128/50 H Blood Pressure Location Lt brachial Position Sitting Respiration 16 Pulse 72 Pulse Source NIBP Temp 98.3 F Temp Source Oral Pulse Oximetry (%) 97 Oxygen Delivery Method room air Intake Visit Reasons: L LOWER SIDE LEG INJURY Chief Complaint: left lower leg wound Room Service Attendant Required: No Is patient in pain?: Yes [...] OTC, states it closed up very quickly. [facility] Medical History (Updated 04/10/25 @ 15:59 [...] Pham Signature: Date (if applicable) CC: Normal [facility] Basic Metabolic Profile (BMP )on 06-11-2024 BUN/CRE 17.2 RATIO Normal 10-20 [facility] Comment on above: Order Comment: Order Date: 01/17/24 Order Info: [id number] - BMP Order Info: [id number] - LIPID Order Info: [id number] - PSA Performed By: #### L 501.9910, L500.4100, L500.2500 #### [facility] [address] [place], [address] CA,Total 9.0 mg/dL Normal 8.5-10.1 [facility] Comment on above: Order Comment: Order Date: 01/17/24 Order Info: [id number] - BMP Order Info: [id number] - LIPID Order Info: [id number] - PSA Performed By: #### L 501.9910, L500.4100, L500.2500 #### [facility] [address] [place], [address] Chloride [Moles/Vol] 108 mmol/L High 98-107 [facility] Comment on above: Order Comment: Order Date: 01/17/24 Order Info: 666-09 - BMP Order Info: [id number] - LIPID Order Info: [id number] - PSA Performed By: #### L 501.9910, L500.4100, L500.2500 #### [facility] [address] [place], [address] CO2 [Moles/Vol] 27.0 mmol/L Normal 21.0-32.0 [facility] Comment on above: Order Comment: Order Date: 01/17/24 Order Info: 666-09 - BMP Order Info: [id number] - LIPID Order Info: [id number] - PSA Performed By: #### L 501.9910, L500.4100, L500.2500 #### [facility] [address] [place], [address] Creatinine [Mass/Vol] 0.93 mg/dL Normal 0.70-1.30 [facility] Comment on above: Order Comment: Order Date: 01/17/24 Order Info: 666-09 - BMP Order Info: [id number] - LIPID Order Info: [id number] - PSA Result Comment: The validity of the calculated GFR GFRAA in patients over 70 years has not been determined. Clinical correlation is essential. Performed By: #### L 501.9910, L500.4100, L500.2500 #### [facility] [address] [place], [address] EST GFR - AA 102 mL/min Normal >60 [facility] Comment on above: Order Comment: Order Date: 01/17/24 Order Info: 666-09 - BMP Order Info: [id number] - LIPID Order Info: [id number] - PSA Result Comment: Afri can Hungarian GFR Calc Performed By: #### L 501.9910, L500.4100, L500.2500 #### [facility] [address] [place], [address] GAP 5 Normal 5-15 [facility] Comment on above: Order Comment: Order Date: 01/17/24 Order Info: 666-09 - BMP Order Info: - LIPID Order Info: [id number] - PSA Performed By: #### L 501.9910, L500.4100, L500.2500 #### [facility] [address] [place], [address] GFR/1.73 sq M.predicted among non-blacks MDRD (S/P/Bld) [Vol rate/Area] 84 mL/min/{1.73_m2} Normal >60 [facility] Comment on above: Order Comment: Order Date: 01/17/24 Order Info: 666-09 - BMP Order Info: - LIPID Order Info: [id number] - PSA Result Comment: Non- GFR Calc Performed By: #### L 501.9910, L500.4100, L500.2500 #### [facility] [address] [place], [address] Glucose [Mass/Vol] 97 mg/dL Normal 74-106 [facility] Comment on above: Order Comment: Order Date: 01/17/24 Order Info: 666-09 - BMP Order Info: - LIPID Order Info: [id number] - PSA Performed By: #### L 501.9910, L500.4100, L500.2500 #### [facility] [address] [place], [address] Potassium [Moles/Vol] 4.2 mmol/L Normal 3.5-5.1 [facility] Comment on above: Order Comment: Order Date: 01/17/24 Order Info: 666-09 - BMP Order Info: [id number] - LIPID Order Info: [id number] - PSA Performed By: #### L 501.9910, L500.4100, L500.2500 #### [facility] [address] [place], [address] Sodium [Moles/Vol] 140 mmol/L Normal 136-145 [facility] Comment on above: Order Comment: Order Date: 01/17/24 Order Info: 06 - BMP Order Info: [id number] - LIPID Order Info: [id number] - PSA Performed By: #### L 501.9910, L500.4100, L500.2500 #### [facility] [address] [place], [address] Urea nitrogen [Mass/Vol] 16 mg/dL Normal 7-18 [facility] Comment on above: Order Comment: Order Date: 01/17/24 Order Info: 666-09 - BMP Order Info: [id number] - LIPID Order Info: [id number] - PSA Performed By: #### L 501.9910, L500.4100, L500.2500 #### [facility] [address] [place], [address] Lipid Profileon 06-11-2024 Cholesterol [Mass/Vol] 183 mg/dL Normal 200 [facility] Comment on above: Order Comment: Order Date: 01/17/24 Order Info: 666-09 - BMP Order Info: [id number] - LIPID Order Info: [id number] - PSA Result Comment: <200 mg/dL Desirable 200-240 mg/dL Borderline >240 mg/dL High Risk Performed By: #### L 501.9910, L500.4100, L500.2500 #### [facility] [address] [place], [address] Cholesterol in HDL [Mass/Vol] 52 mg/dL Normal [facility] Comment on above: Order Comment: Order Date: 01/17/24 Order Info: 06 - BMP Order Info: [id number] - LIPID Order Info: [id number] - PSA Result Comment: The drugs N-Acetylcysteine and Metamizole may falsely depress this assay. Reference Range HDL <40 mg/dL Low HDL Cholesterol HDL >or= 60 mg/dL High HDL Cholesterol Performed By: #### L 501.9910, L500.4100, L500.2500 #### [facility] [address] [place], [address] Cholesterol in LDL [Mass/Vol] 115 mg/dL Normal 0-130 [facility] Comment on above: Order Comment: Order Date: 01/17/24 Order Info: 666-09 - BMP Order Info: - LIPID Order Info: [id number] - PSA Performed By: #### L 501.9910, L500.4100, L500.2500 #### [facility] [address] [place], [address] Cholesterol in VLDL [Mass/Vol] 16 mg/dL Normal 5-40 [facility] Comment on above: Order Comment: Order Date: 01/17/24 Order Info: 666-09 - BMP Order Info: - LIPID Order Info: [id number] - PSA Performed By: #### L 501.9910, L500.4100, L500.2500 #### [facility] [address] [place], [address] Triglyceride [Mass/Vol] 82 mg/dL Normal [facility] Comment on above: Order Comment: [...] By: #### L 501.9910, L500.4100, L500.2500 #### [facility] [address] [place], [address] PSA,Total - Annual Screenon 06-11-2024 PSA,TOT SCREEN 0.49 ng/mL Normal 0.00-4.00 [facility] Comment on above: Order Comment: Order Date: 01/17/24 Order Info: 666-09 - BMP Order Info: - LIPID Order Info: [id number] - PSA Result Comment: This test was performed using the TPSA assay method for the [employer] chemistry system. Values obtained with different assay methods cannot be used interchangably. When changing PSA assays in the course of monitoring a patient, additional sequential testing should be carried out to confirm baseline values. Performed By: #### L 501.9910, L500.4100, L500.2500 #### [facility] [address] [place], [address] PT D/C Summary (1)on 024 PT D/C Summary (1) [facility] [address] [place] [address] / REHABILITATION SERVICES DISCHARGE SUMMARY MR#: [id number] Acct: [id number] Name: CHRISTINA DON Rep #: [id number] : 1950 73 From: Luz Lara MPT [...] please feel free to call me at [phone]. Thank you for the referral of this patient. Sincerely, Luz Lara, CHENG Balance/Gait/Functio nal tests Balance/Special Test Scores Lower Extremity Functional Score: 43 Improvement % Improvement: 30 05/27/24 0819 CC: Dr. Bassam Jean MD Signed Normal [facility] CBC-Complete Blood Cnt No Di ffon 05-13-2024 Erythrocyte distribution width (RBC) [Ratio] 12.9 % Normal 11.6-14.6 [facility] Comment on above: Order Comment: Order Date: 05/13/24 Order Info: [id number] - CBC Performed By: #### L 503.0105, L501.9520, L100.0500, L506.1000 #### [facility] [address] [place], [address] Hematocrit (Bld) [Volume fraction] 44.1 % Normal 40-54 [facility] Comment on above: Order Comment: Order Date: 05/13/24 Order Info: [id number] - CBC Performed By: #### L 503.0105, L501.9520, L100.0500, L506.1000 #### [facility] [address] [place], [address] Hemoglobin (Bld) [Mass/Vol] 15.2 g/dL Normal 13.0-16.5 [facility] Comment on above: Order Comment: Order Date: 05/13/24 Order Info: [id number] - CBC Performed By: #### L 503.0105, L501.9520, L100.0500, L506.1000 #### [facility] [address] [place], [address] MCH (RBC) [Entitic mass] 33.1 pg High 27.0-32.0 [facility] Comment on above: Order Comment: Order Date: 05/13/24 Order Info: [id number] - CBC Performed By: #### L 503.0105, L501.9520, L100.0500, L506.1000 #### [facility] [address] [place], [address] MCHC (RBC) [Mass/Vol] 34.5 g/dL Normal 32-36 [facility] Comment on above: Order Comment: Order Date: 05/13/24 Order Info: [id number] - CBC Performed By: #### L 503.0105, L501.9520, L100.0500, L506.1000 #### [facility] [address] [place], [address] MCV (RBC) [Entitic vol] 96.1 fL High 80-94 [facility] Comment on above: Order Comment: Order Date: 05/13/24 Order Info: [id number] - CBC Performed By: #### L 503.0105, L501.9520, L100.0500, L506.1000 #### [facility] [address] [place], [address] Platelet mean volume (Bld) [Entitic vol] 10.6 fL Normal 6.2-12.0 [facility] Comment on above: Order Comment: Order Date: 05/13/24 Order Info: [id number] - CBC Performed By: #### L 503.0105, L501.9520, L100.0500, L506.1000 #### [facility] [address] [place], [address] Platelets (Bld) [#/Vol] 196 10*3/uL Normal 150-450 [facility] Comment on above: Order Comment: Order Date: 05/13/24 Order Info: [id number] - CBC Performed By: #### L 503.0105, L501.9520, L100.0500, L506.1000 #### [facility] [address] [place], [address] RBC (Bld) [#/Vol] 4.59 10*6/uL Low 4.6-6.2 [facility] Comment on above: Order Comment: Order Date: 05/13/24 Order Info: [id number] - CBC Performed By: #### L 503.0105, L501.9520, L100.0500, L506.1000 #### [facility] [address] [place], [address] RDW SD 45.7 fl High 35.1-43.9 [facility] Comment on above: Order Comment: Order Date: 05/13/24 Order Info: [id number] - CBC Performed By: #### L 503.0105, L501.9520, L100.0500, L506.1000 #### [facility] [address] [place], [address] WBC (Bld) [#/Vol] 6.0 10*3/uL Normal 4.4-11.0 [facility] Comment on above: Order Comment: Order Date: 05/13/24 Order Info: [id number] - CBC Performed By: #### L 503.0105, L501.9520, L100.0500, L506.1000 #### [facility] [address] [place], [address] Thyroid Stim Hormone (TSH)on 05-13-2024 TSH 3.100 uIU/mL Normal 0.358-3.740 [facility] Comment on above: Order Comment: Order Date: 05/13/24 Order Info: [id number] - TSH Performed By: #### L 503.0105, L501.9520, L100.0500, L506.1000 #### [facility] [address] [place], [address] Vitamin B12on 05-13-2024 Cobalamin (Vitamin B12) [Mass/Vol] 701 pg/mL Normal 211-911 [facility] Comment on above: Order Comment: Order Date: 05/13/24 Order Info: [id number] - B12 Order Info: [id number] - VITD25 Performed By: #### L 503.0105, L501.9520, L100.0500, L506.1000 #### [facility] [address] [place], [place], [address] Vitamin D,25 Hydroxyon 05-13 Vitamin D 25-OH 50.2 ng/mL Normal [facility] Comment on above: Order Comment: Order Date: 05/13/24 Order Info: [id number] - B12 Order Info: [id number] - VITD25 Result Comment: Melissa min D 25(OH) Status Range Deficiency <20 ng/mL (50nmol/L) Insufficiency 20 - 30 ng/mL (50 - 75 nmol/L) Sufficiency 30 - 100 ng/mL (75 - 250 nmol/L) Toxicity >100 ng/mL (>250 nmol/L) Performed By: #### L 503.0105, L501.9520, L100.0500, L506.1000 #### [facility] [address] [place], [place], [address] Basophil percentageon 2022 Chloride [Moles/Vol] 108 mmol/L 98-107 [facility] Work Phone: Cholesterol [Mass/Vol] 184 mg/dL <200 [facility] Work Phone: Comment on above: <200 mg/dL Desirable 200-240 mg/dL Borderline >240 mg/dL High Risk Glucose [Mass/Vol] 100 mg/dL 74-106 [facility] Work Phone: Comment on above: Fasting Glucose resu lt from 100 to 125 mg/dL suggests IMPAIRED HOMEOSTASIS per A.D.A. criteria. Potassium [Moles/Vol] 3.9 mmol/L 3.5-5.1 [facility] Work Phone: Sodium [Moles/Vol] 142 mmol/L 136-145 [facility] Work Phone: Triglyceride [Mass/Vol] 103 mg/dL <199 [facility] Work Phone: Comment on above: The drugs N-Acetylcy steine and Metamizole may falsely depress this assay.Serum Triglycerides Reference Interval Normal <150 mg/dL Borderline high 150 - 199 mg/dL High 200 - 499 mg/dL Very High > or = 500 mg/dL WBC (Bld) [#/Vol] 4.5 10*3/uL 4.4-11.0 [facility] Work Phone: Blood erythrocytes count (nu mber/volume)on 09-26-2022 RBC (Bld) [#/Vol] 4.52 10*6/uL 4.6-6.2 [facility] Work Phone: Blood hemoglobin measurement (mass/volume)on 09-26-2022 Hemoglobin (Bld) [Mass/Vol] 15.1 g/dL 13.0-16.5 [facility] Work Phone: Blood platelet mean volumeon 09-26-2022 Platelet mean volume (Bld) [Entitic vol] 10.7 fL 6.2-12.0 [facility] Work Phone: Determination of erythrocyte mean corpuscular volume (MCV)on 09-26-2022 MCV (RBC) [Entitic vol] 96.2 fL 80-94 [facility] Work Phone: Hematocrit Auto (Bld) [Volum e fraction]on 09-26-2022 Hematocrit (Bld) [Volume fraction] 43.5 % 40-54 [facility] Work Phone: Iron measurement (mass/mass) on 09-26-2022 Iron (Unsp spec) [Mass/Mass] 109 ug/dL 65-175 [facility] Work Phone: Laboratory - Chemistry and C hemistry - challengeon 09-26-2022 CO2 [Moles/Vol] 27.0 mmol/L 21.0-32.0 [facility] Work Phone: Cobalamin (Vitamin B12) [Mass/Vol] 444 pg/mL 211-911 [facility] Work Phone: Urea nitrogen/Creatinine [Mass ratio] 13.5 mg/mg 10-20 [facility] Work Phone: Laboratory - Hematology and Cell countson 09-26-2022 Erythrocyte distribution width (RBC) [Entitic vol] 46.7 fL 35.1-43.9 [facility] Work Phone: Erythrocyte distribution width (RBC) [Ratio] 13.2 % 11.6-14.6 [facility] Work Phone: MCH (RBC) [Entitic mass] 33.4 pg 27.0-32.0 [facility] Work Phone: MCHC Auto (RBC) [Mass/Vol]on 09-26-2022 MCHC (RBC) [Mass/Vol] 34.7 g/dL 32-36 [facility] Work Phone: No Panel Informationon 09-26 Estimated GFR (MDRD) Amer 90 mL/min >60 [facility] Work Phone: Comment on above: GFR Calc Estimated GFR (MDRD) Non-Af Amer 74 mL/min >60 [facility] Work Phone: Comment on above: Non- GFR Calc Prostate Specific Antigen Screen 0.47 ng/mL 0.00-4.00 [facility] Work Phone: Comment on above: This test was perfor med using the TPSA assay method for the[facility] chemistry system. Values obtained with differentassay methods cannot be used interchangably.When changing PSA assays in the course of monitoring apatient, additional sequential testing should be carriedout to confirm baseline values. Thyroid Stimulating Hormone (TSH) 3.07 uIU/mL 0.358-3.74 [facility] Work Phone: Vitamin D 25-Hydroxy 42.6 ng/mL [facility] Work Phone: Comment on above: Vitamin D 25(OH) Sta tus Range Deficiency <20 ng/mL (50nmol/L) Insufficiency 20 - 30 ng/mL (50 - 75 nmol/L) Sufficiency 30 - 100 ng/mL (75 - 250 nmol/L) Toxicity >100 ng/mL (>250 nmol/L) Platelets bldon 09-26-2022 Platelets (Bld) [#/Vol] 177 10*3/uL 150-450 [facility] Work Phone: Serum or plasma calcium yolis urement (mass/volume)on 09-26-2022 Calcium [Mass/Vol] 9.0 mg/dL 8.5-10.1 [facility] Work Phone: Serum or plasma cholesterol in HDL measurement (mass/volume)on 09-26-2022 Cholesterol in HDL [Mass/Vol] 53 mg/dL >40 [facility] Work Phone: Comment on above: The drugs N-Acetylcy steine and Metamizole may falsely depress this assay. Reference Range HDL <40 mg/dL Low HDL Cholesterol HDL >or= 60 mg/dL High HDL Cholesterol Serum or plasma cholesterol in VLDL measurement (mass/volume)on 09-26-2022 Cholesterol in VLDL [Mass/Vol] 21 mg/dL 5-40 [facility] Work Phone: Serum or plasma creatinine m easurement (mass/volume)on 09-26-2022 Creatinine [Mass/Vol] 1.04 mg/dL 0.70-1.30 [facility] Work Phone: Comment on above: The validity of the calculated GFR & GFRAA in patients over 70 years has not been determined. Clinical correlation is essential. Serum or plasma low density lipoprotein (LDL) cholesterol measurement (mass/volume)on 09-26-2022 Cholesterol in LDL [Mass/Vol] 110 mg/dL 0-130 [facility] Work Phone: Serum or plasma urea nitroge n measurement (mass/volume)on 09-26-2022 Urea nitrogen [Mass/Vol] 14 mg/dL 7-18 [facility] Work Phone: Thin prep Papanicolaou smear with manual screeningon 09-26-2022 Thin prep Papanicolaou smear with manual screening 7 5-15 [facility] Work Phone: Vital Signs Date Time Vital Sign Value Performing Clinician Faci lity 04-10-2025 12:57-0400 Body height 175.[address] Bassam Jean MD Work Phone: [facility] 04-10-2025 12:57-0400 Body mass index (BMI) [Ratio] 29.5 kg/m2 Dr. Bassam Jean MD Work Phone: [facility] 04-10-2025 12:57-0400 Body temperature 98.3 [degF] Dr. Bassam Jean MD Work Phone: [facility] 04-10-2025 12:57-0400 Body weight 90.[address] Bassam Jean MD Work Phone: [facility] 04-10-2025 12:57-0400 Diastolic blood pressure 50 mm[Hg] Dr. Bassam Jean MD Work Phone: [facility] 04-10-2025 12:57-0400 Heart rate 72 /min Dr. Bassam Jean MD Work Phone: [facility] 04-10-2025 12:57-0400 Respiratory rate 16 /min Dr. Bassam Jean MD Work Phone: [facility] 04-10-2025 12:57-0400 SaO2% (BldA) [Mass fraction] 97 % Dr. Bassam Jean MD Work Phone: [facility] 04-10-2025 12:57-0400 Systolic blood pressure 128 mm[Hg] Dr. Bassam Jean MD Work Phone: [facility] Encounters Encounter Date Encounter Type Care Provider Facility Start: 04-10-2025 End: 04-10-2025 Patient encounter procedure [facility] Work Phone: Start: 04-10-2025 End: 04-10-[address] Bassam Jean MD Work Phone: [facility] Start: 06-11-2024 End: 06-11-2024 ambulatory Bassam Jean Facility:[facility] Start: 05-27-2024 End: 05-27-2024 ambulatory [facility] Facility:[facility] Start: 05-13-2024 End: 05-13-2024 ambulatory [facility] Facility:[facility] Start: 01-21-2024 End: 01-21-2024 ambulatory [facility] Work Phone: Start: 01-21-2024 End: 01-21-2024 [facility] Start: 09-26-2022 End: 09-26-2022 ambulatory [facility] Work Phone: Start: 09-26-2022 End: 09-26-2022 Patient encounter procedure [facility] Start: 05-30-2022 End: 05-30-2022 ambulatory [facility] Work Phone: Start: 05-30-2022 End: 05-30-2022 Patient encounter procedure [facility] [place] Procedures Date Procedure Procedure Detail Performing Clinician Start: 01-21-2024 Radiologic examinati on of knee Start: 05-30-2022 X-ray of both feet Payers Date Payer Category Payer Self-pay [id number] 2023 Medicare [id number] Medicare [id number] Private Health Insurance [facility] [id number] Unknown [id number] Unknown [id number] [id number] Unknown [id number] [id number] Unknown [id number] 2.16.8 [id number] Unknown [id number] [id number] [id number] Social History Date Type Detail Facility Start: 11-16-2015 End: 11-16-2015 Tobacco smoking status NHIS Unknown if ever smoked [facility] Start: 1950 Sex Assigned At Male [facility] Start: 04-10-2025 Tobacco smoking stat us NHIS Never smoked tobacco (finding) [facility] Evaluation note Note Date & Type Note Facility Evaluation note No assessment information availa ble [facility] Work Phone: Reason for referral (narrative) Note Date & Type Note Facility Reason for referral (narrative) No reason for referral information available [facility] Work Phone: Chief Complaint and Reason [...] section and content) DATE CREATED AUTHOR 04/13/2025 [facility] FOR RECORDS PERTAINING TO PATIENTS WHO ARE [...] BE BASED ON THE PRIMARY CLINICAL RECORDS. [employer] provides no warranty or guarantee of the accuracy or completeness of information in this document.
== END | disposition home or self-care (01) ==
LOC: MFPLAB 15:43
PROVIDERS: PCP Family Medicine; Visit Provider Family Medicine
DX: E86.0 Dehydration (principal)
CPT/HCPCS: 36415; 80048; 82550